=== PATIENT | male | born 1995 | race Hispanic/Latino ===

== ENCOUNTER 2018-06-05 10:00 | Emergency (ER) | payer OTHER, SELFPAY ==
[2018-06-05] MEDS ORDERED: Sulfameth/Trimethoprim DS 800-160mg TAB ONE (10:32)
[2018-06-05] MEDS ORDERED: traMADol HCl 50 MG TAB ONE (10:35)
[2018-06-05] MEDS ORDERED: Ibuprofen 800 MG TAB ONE (10:35)
[2018-06-05] MEDS ORDERED: Adacel (T-DAP) 0.5 ML VIAL ONE (10:45)
== END 2018-06-05 11:13 | disposition home or self-care (01) ==
LOC: BURERS 10:00
DX: S61.233A Puncture wound without foreign body of left middle finger without damage to nail, initial encounter (principal); W26.8XXA Contact with other sharp object(s), not elsewhere classified, initial encounter
CPT/HCPCS: 90471; 90715